=== PATIENT | female | born 1970 | race Caucasian/White ===

== ENCOUNTER 2017-01-15 17:50 | Emergency (ER) | payer MEDICARE ==
[~2017-01-15 17:50] MED LIST: CIPRO500 MG PO; MEDROL DOSEPAK 24 MG PO
[2017-01-15 21:49] LABS: HEMOGLOBIN 14.6 gm/dl (12.3-15.3); WHITE BLOOD COUNT 11.7 K/UL (4.5-11.0)
[2017-01-15 22:05] LABS: BUN/CREATININE RATIO 20 (0-10)
== END 2017-01-16 01:20 | disposition home or self-care (01) ==
LOC: ER1 17:50
PROVIDERS: Emergency Medicine
DX: N39.0 Urinary tract infection, site not specified (principal); R07.81 Pleurodynia; F17.200 Nicotine dependence, unspecified, uncomplicated
CPT/HCPCS: 36415; 71020; 80053; 81001; 82550; 82553; 83874; 84484; 84703; 85025; 85379; 87086; 93005; 96365; 99284; J0696; J7050; Q9963